=== PATIENT | female | born 1970 | race Caucasian/White ===

== ENCOUNTER 2016-12-23 06:20 | Emergency (ER) | payer BC, OTHER ==
[~2016-12-23] VITALS: Ht 162.6 cm; Wt 92.2 kg
[~2016-12-23 06:20] MED LIST: DOXY100T PO
[2016-12-23 06:26] VITALS: BP 115/73; PULSE 74; RESP 12; TEMP 98.3; O2SAT 98
[2016-12-23 06:40] VITALS: BP 115/73; PULSE 74; RESP 18; TEMP 98.2; O2SAT 98
[2016-12-23] MEDS ORDERED: ESCI5TAB PO (06:46)
[2016-12-23] MEDS ORDERED: ALPR.25 PO (06:46)
--- NOTE | 2016-12-23 06:49 | PD ---
HPI Chief Complaint: Musculoskeletal Complaint Time Seen by Provider: 06:42 Travel History International Travel<30 days: No Contact w/Intl Traveler<30days: No Traveled to known affect area: No History of Present Illness HPI 46-year-old female presents to the emergency department for days after a non- syncopal slip and fall on a wet tile floor at home. Patient states she was not able to catch herself before she had her slip and fall on the wet tile floor 4 days ago. Patient states she did not hit her head and did not have loss of consciousness. Patient states she did not injure her neck or upper back. Patient denies any rib pain or chest pain or shortness of breath. No report of abdominal pain or nausea or vomiting. Patient does complain of left shoulder pain and left hip pain and low back pain. No lower extremity numbness tingling or weakness. No saddle anesthesia. No bladder or bowel dysfunction. Patient initially had some numbness in her left hip with referred pain to her left lower extremity but that has resolved. Patient is here because of persistent hip pain and left shoulder pain. Patient is right-handed. Patient has taken a dose of ibuprofen. Due to persistent symptoms presents now for further evaluation. The patient rates her pain 8/10 intensity. PFSH Past Medical History Narrative Medical 2, reconstructive fistula surgery to the face; no tobacco use; nursing notes reviewed Diminished Hearing: No PNEUMOCCOCAL Vaccine (Year): 0 ?: Unknown Past Surgical History Section: Yes Gynecologic Surgery: Yes (CSECTION X2 ) Oral Surgery: Yes (RECONSTRUCTIVE ORAL/facial) Social History Alcohol Use: No Tobacco Use: No Substance Use: No Allergies-Medications (Allergen,Severity, Reaction): Coded Allergies: Ampicillin (Verified Allergy, Severe, Hives, 12/23/16) Penicillin (Verified Allergy, Severe, Hives, 12/23/16) Zithromax (Verified Allergy, Severe, Anaphylaxis, 12/23/16) Reported Meds & Prescriptions Reported Meds & Active Scripts Active Robaxin (Methocarbamol) 750 Mg Tab 750 Mg PO Q6HR Reported Escitalopram (Escitalopram Oxalate) 5 Mg Tab 5 Mg PO DAILY Xanax (Alprazolam) 0.25 Mg Tab 0.25 Mg PO Q6H PRN Review of Systems Except as stated in HPI: all other systems reviewed are Neg General / Constitutional: No: Fever, Chills Eyes: No: Visual changes HENT: No: Headaches, Neck Pain Cardiovascular: No: Chest Pain or Discomfort Respiratory: No: Shortness of Breath Gastrointestinal: No: Abdominal Pain Genitourinary: Positive: Flank Pain Musculoskeletal: Positive: Myalgias, Arthralgias, Pain (left shoulder left lower back left hip) Skin: No Rash Neurologic: Positive: Weakness (generalized), No: Dizziness, Syncope, Focal Abnormalities, Coordination Problem Psychiatric: Positive: Anxiety Hematologic/Lymphatic: No: Easy Bruising Physical Exam Narrative GENERAL: Well-developed well-nourished female in no acute distress no respiratory distress; antalgic movement from standing at bedside to exam on ED stretcher; GCS 15 SKIN: Warm and dry. HEAD: Atraumatic. Normocephalic. EYES: Pupils equal and round. No scleral icterus. No injection or drainage. ENT: No nasal bleeding or discharge. Mucous membranes pink and moist. NECK: Trachea midline. No JVD. CARDIOVASCULAR: Regular rate and rhythm. RESPIRATORY: No accessory muscle use. Clear to auscultation. Breath sounds equal bilaterally. GASTROINTESTINAL: Abdomen soft, non-tender, nondistended. Hepatic and splenic margins not palpable. MUSCULOSKELETAL: Extremities without clubbing, cyanosis, or edema. No obvious deformities. Decreased range of motion of left shoulder and left hip without ecchymosis abrasion or edema noted distally extremities are neurovascular tendon intact brisk capillary refill less than 2 seconds and radial and dorsalis pedis pulses +2+ bilaterally. NEUROLOGICAL: Awake and alert. No obvious cranial nerve deficits. Motor grossly within normal limits. Five out of 5 muscle strength in the arms and legs. Normal speech. PSYCHIATRIC: Appropriate mood and affect; insight and judgment normal. Data Data Last Documented VS Vital Signs Date Time Temp Pulse Resp B/P Pulse Ox O2 Delivery O2 Flow Rate FiO2 12/23/16 06:40 98.2 74 18 115/73 98 Orders Urinalysis - C+S If Indicated (12/23/16 06:42) Ed Urine Pregnancytest Poc (12/23/16 06:42) Hip, Uni(Ap&Lat) W Ap Pelvis (12/23/16 ) Spine, Lumbar - Ltd (Ap & Lat) (12/23/16 ) Shoulder, Complete (>2vws) (12/23/16 ) MDM Medical Decision Making Medical Screen Exam Complete: Yes Emergency Medical Condition: Yes Medical Record Reviewed: Yes Differential Diagnosis Mechanical fall, shoulder contusion, fracture, dislocation, hip contusion v fracture, lumbar strain sprain contusion DJD HNP cord compression Narrative Course Patient will be sent for imaging studies urinalysis collected [id number] hCG performed and negative; patient appears stable for outpatient management. At 7 AM care signed over to oncoming physician Dr. Musa Diagnosis Primary Impression: Contusion of left hip, initial encounter Additional Impression: Pelvic contusion Qualified Code: S30.0XXA - Pelvic contusion, initial encounter Referrals: Primary Care Physician call for appointment Patient Instructions: General Instructions Med/Other Pt SpecificInfo: Prescription(s) given Scripts Methocarbamol (Robaxin)750 Mg [id number] Mg PO Q6HR #12 TAB Ref 0 Prov:Rosario Rodrigues MD 12/23/16 Rosario Rodrigues MD Dec 23, 2016 06:49
[2016-12-23] MEDS ORDERED: ROBA750T PO (06:57)
[2016-12-23 06:58] LABS: BLOOD, URINE NEG (NEG); GLUCOSE,URINE NEG (NEG); KETONE, URINE NEG (NEG); NITRITE,URINE NEG (NEG); PH, URINE 5.5 (5.0-8.5)
[2016-12-23 07:11] LABS: METHOD OF COLLECTION CLEAN CATCH; URINE COLOR YELLOW (YELLW/STRAW)
[2016-12-23 07:12] LABS: BACTERIA, URINE MOD /hpf; COMMENT (UR) CULTURE INDICATED; COMMENT2 (UR) MUCOUS PRESENT; CULTURE IF INDICATED CULTURE INDICATED; SQUAMOUS EPITHELIAL CELL URINE > 8 /hpf (0-5); WBC, URINE 0-2 /hpf (0-5)
--- NOTE | 2016-12-23 07:16 | RADHPO ---
EXAM DATE/TIME: 12/23/2016 06:51 [facility] COMPARISON: No previous studies available for comparison. INDICATIONS : Fell, complains of left hip pain. MEDICAL HISTORY : None. SURGICAL HISTORY : None. ENCOUNTER: Initial ACUITY: 4 - 6 days PAIN SCORE: 7/10 LOCATION: Left hip FINDINGS: Examination of the left hip was performed with AP Pelvis. The primary and secondary trabecular patte rn of the femoral neck is intact. The hip joint is of normal width without significant sclerosis or bony hypertrophy. The acetabulum is grossly intact. CONCLUSION: Negative for fracture or dislocation. Follow up in 7-10 days is suggested if symptoms persist. Rey Stover MD FACR on December 23, 2016 at 7:14 Board Certified Radiologist. This report was verified electronically.
--- NOTE | 2016-12-23 07:18 | RADHPO ---
EXAM DATE/TIME: 12/23/2016 06:53 [facility] COMPARISON: No previous studies available for comparison. INDICATIONS : Fall, complains of low back pain. MEDICAL HISTORY : None. SURGICAL HISTORY : None. ENCOUNTER: Initial ACUITY: 4 - 6 days PAIN SCORE: 7/10 LOCATION: Lumbar FINDINGS: Mild degenerative changes in lumbar spine loss of disc space height at L1-2 and L2-3. Minimal anteri or osteophytes are seen at T11-T12 and L1-2. Mild degenerative facet disease is noted.. SI joints a re normal. There is no evidence for an acute compression. CONCLUSION: Mild degenerative changes, negative for an acute process. Rey Stover MD FACR on December 23, 2016 at 7:15 Board Certified Radiologist. This report was verified electronically.
--- NOTE | 2016-12-23 07:19 | RADHPO ---
EXAM DATE/TIME: 12/23/2016 06:55 [facility] COMPARISON: No previous studies available for comparison. INDICATIONS : Fall, complains of left shoulder pain. MEDICAL HISTORY : None. SURGICAL HISTORY : None. ENCOUNTER: Initial ACUITY: 4 - 6 days PAIN SCORE: 7/10 LOCATION: Left shoulder FINDINGS: Multiple view examination of the left shoulder demonstrates no evidence of fracture or dislocation. The glenohumeral and acromioclavicular joints are maintained. There is normal range of motion betwee n internal and external rotation. Bony mineralization is normal. CONCLUSION: Negative for fracture or dislocation. Follow up in 7-10 days is suggested if symptoms persist. Rey Stover MD FACR on December 23, 2016 at 7:17 Board Certified Radiologist. This report was verified electronically.
--- NOTE | 2016-12-23 07:34 | PD ---
Data Data Last Documented VS Vital Signs Date Time Temp Pulse Resp B/P Pulse Ox O2 Delivery O2 Flow Rate FiO2 12/23/16 07:28 72 16 98 12/23/16 06:40 98.2 115/73 Orders Urinalysis - C+S If Indicated (12/23/16 06:42) Ed Urine Pregnancytest Poc (12/23/16 06:42) Hip, Uni(Ap&Lat) W Ap Pelvis (12/23/16 ) Spine, Lumbar - Ltd (Ap & Lat) (12/23/16 ) Shoulder, Complete (>2vws) (12/23/16 ) Urine Culture (12/23/16 06:45) Labs Laboratory Tests Test 12/23/16 06:45 Urine Collection Type CLEAN CATCH Urine Color YELLOW Urine Turbidity SLIGHT Urine pH 5.5 Urine Specific [place] 1.026 Urine Protein NEG mg/dL Urine Glucose (UA) NEG mg/dL Urine Ketones NEG mg/dL Urine Occult Blood NEG Urine Nitrite NEG Urine Bilirubin NEG Urine Leukocyte Esterase NEG Urine WBC 0-2 /hpf Urine Squamous Epithelial > 8 /hpf Cells Urine Amorphous Sediment MOD Urine Bacteria MOD /hpf Microscopic Urinalysis Comment CULTURE INDICATED Urine Collection Time 0645 [facility] Supervised Visit with YEN: No Narrative Course This case is checked out to me by Dr. Rodrigues at 7 AM. She had a fall several days ago and is having hip and shoulder and back pain. She had a lot of imaging and I reviewed all of her x-rays Shoulder x-ray shows no fracture or dislocation Hip x-ray shows no fracture or dislocation Lumbar spine films show some arthritic change without fracture Urine does not look suspicious for infection to me with more epithelial cells and white cells but will be cultured Muscle relaxer is been prescribed Gradual resolution is expected Diagnosis Primary Impression: Contusion of left hip, initial encounter Additional Impression: Pelvic contusion Qualified Code: S30.0XXA - Pelvic contusion, initial encounter Referrals: Primary Care Physician call for appointment Patient Instructions: General Instructions, Contusion in Adults (ED), Hip Contusion (ED) Departure Forms: Tests/Procedures Scripts Methocarbamol (Robaxin)750 Mg [id number] Mg PO Q6HR #12 TAB Ref 0 Prov:Rosario Rodrigues MD 12/23/16 Disposition: 01 DISCHARGE HOME Condition: Stable Ever Musa MD Dec 23, 2016 07:34
== END 2016-12-23 07:39 | disposition home or self-care (01) ==
LOC: PHED 06:20
DX: S70.02XA Contusion of left hip, initial encounter (principal); R82.90 Unspecified abnormal findings in urine; M25.512 Pain in left shoulder; M54.5 Low back pain; W01.0XXA Fall on same level from slipping, tripping and stumbling without subsequent striking against object, initial encounter; Y93.01 Activity, walking, marching and hiking; Y92.9 Unspecified place or not applicable; Y99.8 Other external cause status
CPT/HCPCS: 72100; 73030; 73502; 81001; 84703; 87086; 99284

== ENCOUNTER 2017-02-10 18:42 | Emergency (ER) | payer BC ==
[~2017-02-10] VITALS: Ht 162.6 cm; Wt 97.2 kg
[~2017-02-10 18:42] MED LIST changes: +ALPR.25 PO; -DOXY100T PO; +ESCI5TAB PO; +ROBA750T PO
[2017-02-10 18:51] VITALS: BP 144/78; PULSE 72; RESP 18; TEMP 98.2
[2017-02-10] MEDS ORDERED: SODIUM CHLORIDE 0.9% FLUSH 10 ML FLUSH IV FLUSH PRN (19:00)
[2017-02-10] MEDS ORDERED: KETOROLAC TROMETHAMINE 30 MG/ML (IVP) VIAL IVP ONE (19:00)
[2017-02-10] MEDS ORDERED: MORPHINE SULFATE 4 MG/ML INJ IV PUSH ONE (19:00)
[2017-02-10] MEDS ORDERED: SODIUM CHLOR 0.9% 1000 ML INJ 1,000 ML IV SCH (19:00)
[2017-02-10] MEDS ORDERED: ONDANSETRON HCL 4 MG/2 ML VIAL IVP ONE (19:00)
--- NOTE | 2017-02-10 19:13 | PD ---
HPI Chief Complaint: Abdominal Pain Time Seen by Provider: 18:54 Travel History International Travel<30 days: No Contact w/Intl Traveler<30days: No Traveled to known affect area: No History of Present Illness HPI The patient is a 46-year-old female who presents emergency department for abdominal pain and distention of 1 week's duration. The patient states she' s had some abdominal distention over the last week, now complains of left lower quadrant abdominal pain. The patient states she feels like her abdomen is bloated with mild nausea and dry heaves last night. The patient states she is had a few bowel movements, small at times, denies any associated diarrhea. The patient has a history of previous section and is scheduled to undergo partial hysterectomy in [address] Roa for endometriosis/endometritis The patient does have a history of ovarian cyst. The patient denies any fever, chills, or sweats. Symptoms are moderate, there are no current alleviating or exacerbating factors. She denies any previous history of diverticulitis or nephrolithiasis. She denies any associated dysuria, frequency, urgency, vaginal discharge, or vaginal bleeding. PFSH Past Medical History Narrative Medical Endometriosis, ovarian cyst Diminished Hearing: No PNEUMOCCOCAL Vaccine (Year): 0 ?: Not Past Surgical History Section: Yes Gynecologic Surgery: Yes (CSECTION X2 ) Oral Surgery: Yes (RECONSTRUCTIVE ORAL/facial) Social History Alcohol Use: No Tobacco Use: No Substance Use: No Allergies-Medications (Allergen,Severity, Reaction): Coded Allergies: Ampicillin (Verified Allergy, Severe, Hives, 02/10/17) Penicillin (Verified Allergy, Severe, Hives, 02/10/17) Zithromax (Verified Allergy, Severe, Anaphylaxis, 02/10/17) Reported Meds & Prescriptions Reported Meds & Active Scripts Active Reported Alprazolam 0.5 Mg Tab 0.5 Mg PO Q6H PRN Review of Systems Except as stated in HPI: all other systems reviewed are Neg General / Constitutional: No: Fever Cardiovascular: No: Chest Pain or Discomfort Respiratory: No: Shortness of Breath Gastrointestinal: Positive: Nausea, Vomiting, Abdominal Pain, No: Diarrhea, Loss of Appetite Genitourinary: No: Dysuria, Discharge, Vaginal Bleeding Musculoskeletal: Positive: Edema (intermittent dependent edema), No: Myalgias , Arthralgias Physical Exam Narrative GENERAL: Awake, alert, pleasant 46-year-old female who appears her stated age and is in no acute respiratory distress. SKIN: Focused skin assessment warm/dry. HEAD: Atraumatic. Normocephalic. EYES: Pupils equal and round. No scleral icterus. No injection or drainage. ENT: No nasal bleeding or discharge. Mucous membranes pink and moist. NECK: Trachea midline. No JVD. CARDIOVASCULAR: Regular rate and rhythm. No murmur appreciated. RESPIRATORY: No accessory muscle use. Clear to auscultation. Breath sounds equal bilaterally. GASTROINTESTINAL: Abdomen soft, minimal distention, left lower quadrant pain upon palpation. No rebound tenderness or guarding. Negative McBurney's. Negative Kohler's. Back: No CVA tenderness. MUSCULOSKELETAL: No obvious deformities. No clubbing. No cyanosis. No edema. NEUROLOGICAL: Awake and alert. No obvious cranial nerve deficits. Motor grossly within normal limits. Normal speech. PSYCHIATRIC: Appropriate mood and affect; insight and judgment normal. Data Data Last Documented VS Vital Signs Date Time Temp Pulse Resp B/P Pulse Ox O2 Delivery O2 Flow Rate FiO2 02/10/17 19:25 68 20 133/74 99 02/10/17 18:51 98.2 Orders Complete Blood Count With Diff (02/10/17 19:00) Comprehensive Metabolic Panel (02/10/17:00) Lipase (02/10/17 19:00) Urinalysis - C+S If Indicated (02/10/17 19:00) Ct Abd/Pel W/O Iv Contrast (02/10/17 19:00) Iv Access Insert/Monitor (02/10/17 19:00) Ecg Monitoring (02/10/17 19:00) Oximetry (02/10/17 19:00) Morphine Inj (Morphine Inj) (02/10/17 19:00) Ondansetron Inj (Zofran Inj) (02/10/17 19:00) Sodium Chlor 0.9% 1000 Ml Inj (Ns 1000 M (02/10/17 19:00) Sodium Chloride 0.9% Flush (Ns Flush) (02/10/17 19:00) Ketorolac Inj (Toradol Inj) (02/10/17 19:00) Ed Urine Pregnancytest Poc (02/10/17 19:00) Urine Culture (02/10/17 19:20) Labs Laboratory Tests Test 02/10/17 19:20 White Blood Count 8.5 TH/MM3 Red Blood Count 4.57 MIL/MM3 Hemoglobin 13.0 GM/DL Hematocrit 40.3 % Mean Corpuscular Volume 88.2 FL Mean Corpuscular Hemoglobin 28.5 PG Mean Corpuscular Hemoglobin 32.3 % Concent Red Cell Distribution Width 14.0 % Platelet Count 277 TH/MM3 Mean Platelet Volume 8.1 FL Neutrophils (%) (Auto) 60.6 % Lymphocytes (%) (Auto) 31.6 % Monocytes (%) (Auto) 5.7 % Eosinophils (%) (Auto) 1.3 % Basophils (%) (Auto) 0.8 % Neutrophils # (Auto) 5.1 TH/MM3 Lymphocytes # (Auto) 2.7 TH/MM3 Monocytes # (Auto) 0.5 TH/MM3 Eosinophils # (Auto) 0.1 TH/MM3 Basophils # (Auto) 0.1 TH/MM3 CBC Comment DIFF FINAL Differential Comment Urine Color MAX Urine Turbidity MOD Urine pH 6.0 Urine Specific [place] 1.034 Urine Protein TRACE mg/dL Urine Glucose (UA) NEG mg/dL Urine Ketones TRACE mg/dL Urine Occult Blood MOD Urine Nitrite NEG Urine Bilirubin NEG Urine Leukocyte Esterase NEG Urine RBC 4-9 /hpf Urine WBC 6-8 /hpf Urine Squamous Epithelial > 8 /hpf Cells Urine Amorphous Sediment MOD Urine Bacteria MANY /hpf Urine Mucus MOD /lpf Microscopic Urinalysis Comment CULTURE INDICATED Sodium Level 140 MEQ/L Potassium Level 3.5 MEQ/L Chloride Level 106 MEQ/L Carbon Dioxide Level 27.1 MEQ/L Anion Gap 7 MEQ/L Blood Urea Nitrogen 13 MG/DL Creatinine 0.89 MG/DL Estimat Glomerular Filtration 69 ML/MIN Rate Random Glucose 86 MG/DL Calcium Level 8.8 MG/DL Total Bilirubin 0.3 MG/DL Aspartate Amino Transf 18 U/L (AST/SGOT) Alanine Aminotransferase 25 U/L (ALT/SGPT) Alkaline Phosphatase 71 U/L Total Protein 7.3 GM/DL Albumin 3.3 GM/DL Lipase 120 U/L MDM Medical Decision Making Medical Screen Exam Complete: Yes Emergency Medical Condition: Yes Medical Record Reviewed: Yes Interpretation(s) Laboratory Tests Test 02/10/17 19:20 White Blood Count 8.5 TH/MM3 Red Blood Count 4.57 MIL/MM3 Hemoglobin 13.0 GM/DL Hematocrit 40.3 % Mean Corpuscular Volume 88.2 FL Mean Corpuscular Hemoglobin 28.5 PG Mean Corpuscular Hemoglobin 32.3 % Concent Red Cell Distribution Width 14.0 % Platelet Count 277 TH/MM3 Mean Platelet Volume 8.1 FL Neutrophils (%) (Auto) 60.6 % Lymphocytes (%) (Auto) 31.6 % Monocytes (%) (Auto) 5.7 % Eosinophils (%) (Auto) 1.3 % Basophils (%) (Auto) 0.8 % Neutrophils # (Auto) 5.1 TH/MM3 Lymphocytes # (Auto) 2.7 TH/MM3 Monocytes # (Auto) 0.5 TH/MM3 Eosinophils # (Auto) 0.1 TH/MM3 Basophils # (Auto) 0.1 TH/MM3 CBC Comment DIFF FINAL Differential Comment Urine Color MAX Urine Turbidity MOD Urine pH 6.0 Urine Specific [place] 1.034 Urine Protein TRACE mg/dL Urine Glucose (UA) NEG mg/dL Urine Ketones TRACE mg/dL Urine Occult Blood MOD Urine Nitrite NEG Urine Bilirubin NEG Urine Leukocyte Esterase NEG Urine RBC 4-9 /hpf Urine WBC 6-8 /hpf Urine Squamous Epithelial > 8 /hpf Cells Urine Amorphous Sediment MOD Urine Bacteria MANY /hpf Urine Mucus MOD /lpf Microscopic Urinalysis Comment CULTURE INDICATED Sodium Level 140 MEQ/L Potassium Level 3.5 MEQ/L Chloride Level 106 MEQ/L Carbon Dioxide Level 27.1 MEQ/L Anion Gap 7 MEQ/L Blood Urea Nitrogen 13 MG/DL Creatinine 0.89 MG/DL Estimat Glomerular Filtration 69 ML/MIN Rate Random Glucose 86 MG/DL Calcium Level 8.8 MG/DL Total Bilirubin 0.3 MG/DL Aspartate Amino Transf 18 U/L (AST/SGOT) Alanine Aminotransferase 25 U/L (ALT/SGPT) Alkaline Phosphatase 71 U/L Total Protein 7.3 GM/DL Albumin 3.3 GM/DL Lipase 120 U/L CT of the abdomen and pelvis reveals unusual configuration to the region of the cecum with a 4.8 cm opacity near the ileocecal valve which is different imaging features and stool throughout the remainder of the colon. Cannot exclude a solid lesion. A concentric visualization with colonoscopy is recommended. Normal sized the appendix with possible 4 mm appendicolith. 6 mm pulmonary nodule at the periphery of the lower lateral left lung. In accordance with the flush this aside the guidelines, recommend follow-up CT thorax and 6 months that the colonoscopy is negative for malignancy. Differential Diagnosis Differential diagnosis includes pyelonephritis, nephrolithiasis, diverticulitis , UTI, PID, cervicitis, partial small bowel obstruction, endometritis, pancreatitis. Narrative Course IV was established, labs are drawn and sent, and the patient was placed on cardiac telemetry monitoring and continuous pulse oximetry monitoring. The patient was administer morphine, Toradol, Zofran, and IV fluids. UA was sent to lab. CT of the abdomen and pelvis was ordered to evaluate for diverticulitis. The patient's laboratory evaluation is unremarkable except for UA with WBCs and bacteria. The patient will be treated for UTI. However, CT of the abdomen and pelvis is abnormal with unusual configuration to the region of the cecum with a 4.8 cm opacity near the ileocecal valve which is different imaging features and stool throughout the remainder of the colon, cannot exclude a solid lesion, a concentric visible isolation with colonoscopy is recommended. The patient was provided a copy of her labs and CT of the abdomen and pelvis. She is advised to follow-up with gastroenterology as she will need an outpatient colonoscopy. Diagnosis Primary Impression: Abdominal pain Qualified Code: R10.30 - Lower abdominal pain Additional Impression: UTI (urinary tract infection) Qualified Code: N39.0 - Urinary tract infection without hematuria, site unspecified Patient Instructions: General Instructions Additional Instructions: Please provide the patient a copy of her CT results and lab results at discharge. Follow-up with your primary physician for referral to gastroenterology for outpatient colonoscopy. Medications as directed. Return if symptoms worsen or progress. Med/Other Pt SpecificInfo: Prescription(s) given Scripts Hydrocodone-Acetaminophen ([place])5-325 mg Tab1 Tab PO Q6H PRN (PAIN) #12 TAB Ref 0 Prov:Emanuel Lerma MD 02/10/17 Sulfamethoxazole-Trimethoprim (Bactrim DS)800-160 Mg Tab1 Tab PO BID #6 TAB Ref 0 Prov:Emanuel Lerma MD 02/10/17 Disposition: 01 DISCHARGE HOME Condition: Stable Emanuel Lerma MD Feb 10, 2017 19:13
[2017-02-10 19:25] VITALS: BP 133/74; PULSE 68; RESP 20; O2SAT 99
[2017-02-10 19:30] LABS: AUTOMATED NEUTROPHIL # 5.1 TH/MM3 (1.8-7.7); BASOPHIL # 0.1 TH/MM3 (0-0.2); BASOPHIL % 0.8 % (0.0-2.0); EOSINOPHIL # 0.1 TH/MM3 (0-0.4); EOSINOPHIL % 1.3 % (0.0-4.0); HEMATOCRIT 40.3 % (35.0-46.0); LYMPH % 31.6 % (9.0-44.0); LYMPHOCYTE # 2.7 TH/MM3 (1.0-4.8); MEAN CELL VOLUME 88.2 FL (80.0-100.0); MEAN CORPUSCULAR HEMOGLOBIN 28.5 PG (27.0-34.0); MEAN CORPUSCULAR HGB CONC 32.3 % (32.0-36.0); MONO % 5.7 % (0.0-8.0); NEUT % 60.6 % (16.0-70.0); PLATELET COUNT 277 TH/MM3 (150-450); RED BLOOD COUNT 4.57 MIL/MM3 (4.00-5.30); WHITE BLOOD COUNT 8.5 TH/MM3 (4.0-11.0)
[2017-02-10 19:32] LABS: GLUCOSE,URINE NEG (NEG); KETONE, URINE TRACE mg/dL (NEG); NITRITE,URINE NEG (NEG)
[2017-02-10] MEDS ORDERED: ALPR0.5T3 PO (19:32)
[2017-02-10 19:33] LABS: BLOOD, URINE MOD (NEG); HEMO FLAGS DIFF FINAL
[2017-02-10 19:38] LABS: CHLORIDE 106 MEQ/L (98-107); POTASSIUM 3.5 MEQ/L (3.5-5.1); SODIUM (NA) 140 MEQ/L (136-145)
[2017-02-10 19:42] LABS: ANION GAP 7 MEQ/L (5-15); BICARBONATE 27.1 MEQ/L (21.0-32.0); BLOOD UREA NITROGEN 13 MG/DL (7-18)
[2017-02-10 19:45] LABS: ALT (GPT) 25 U/L (10-53); AST (GOT) 18 U/L (15-37); GLOMERULAR FILTRATION RATE 69 ML/MIN (>89)
[2017-02-10 19:47] LABS: TOTAL BILIRUBIN ADULT 0.3 MG/DL (0.2-1.0); URINE COLOR AMBER (YELLW/STRAW)
[2017-02-10 19:48] LABS: ALKALINE PHOSPHATASE 71 U/L (45-117); BACTERIA, URINE MANY /hpf; MUCUS URINE MOD /lpf (OCC); SQUAMOUS EPITHELIAL CELL URINE > 8 /hpf (0-5)
[2017-02-10 19:49] LABS: COMMENT (UR) CULTURE INDICATED; CULTURE IF INDICATED CULTURE INDICATED
[2017-02-10 20:18] VITALS: BP 114/88; PULSE 50; RESP 20; O2SAT 98
--- NOTE | 2017-02-10 21:01 | RADRPT ---
EXAM DATE/TIME: 02/10/2017 19:57 [facility] COMPARISON: No previous studies available for comparison. INDICATIONS : Left lower quadrant pain and distention for one week. ORAL CONTRAST: No oral contrast ingested. RADIATION DOSE: 18.07 CTDIvol (mGy) MEDICAL HISTORY : None SURGICAL HISTORY : section. ENCOUNTER: Initial ACUITY: 1 week PAIN SCALE: 7/10 LOCATION: Left lower quadrant TECHNIQUE: Volumetric scanning of the abdomen and pelvis was performed. Using automated exposure control and ad justment of the mA and/or kV according to patient size, radiation dose was kept as low as reasonably achievable to obtain optimal diagnostic quality images. DICOM format image data is available electro nically for review and comparison. FINDINGS: LOWER LUNGS: No infiltrates in lower lungs. There is a 6 mm nodule periphery left lower lobe laterally as seen on lung window image #11. LIVER: Homogeneous density without lesion for noncontrast technique. There is no dilation of the biliary tr ee. No calcified gallstones. SPLEEN: Normal size without lesion. PANCREAS: Within normal limits. KIDNEYS: Normal in size and shape. There is no mass, stone, or hydronephrosis. ADRENAL GLANDS: Within normal limits. VASCULAR: There is no aortic aneurysm. BOWEL/MESENTERY: No dilated loops of small or large bowel. There is a lobular density in the region of the cecum whic h measures 4.8 cm and has a different configuration than stool throughout the remainder of the colon. This of uncertain significance. The appendix is identified in the right lower quadrant and has a n ormal diameter. There is a focal calcification measuring 4 mm in the region of the mid appendix whic h may represent an appendicolith. No induration of the fat about the appendix. No diverticula in th e sigmoid colon. ABDOMINAL WALL: Within normal limits. RETROPERITONEUM: There is no lymphadenopathy. BLADDER: No wall thickening or mass. REPRODUCTIVE: Anteverted uterus. No evidence of free fluid. INGUINAL: There is no lymphadenopathy or hernia. MUSCULOSKELETAL: Within normal limits for patient age. CONCLUSION: 1. Unusual configuration to the region of the cecum with a 4.8 cm opacity near the ileocecal valve wh ich is different imaging features than stool throughout the remainder of the colon. Cannot exclude a solid lesion. A concentric visualization with colonoscopy. 2. Normal size to the appendix with possible 4 mm appendicolith. 3. 6 mm pulmonary nodule at the periphery of the lower lateral left lung. In accordance with flush t his aside the guidelines, recommend followup CT thorax in 6 months if the colonoscopy is negative for malignancy. Christian Flores MD on February 10, 2017 at 20:53 Board Certified Radiologist. This report was verified electronically.
[2017-02-10] MEDS ORDERED: NORC5TAB PO (21:10)
[2017-02-10] MEDS ORDERED: BACT800T5 PO (21:10)
[2017-02-10 21:34] VITALS: BP 104/60; PULSE 50; RESP 20; O2SAT 98
[2017-02-10 21:35] VITALS: BP 108/54
== END 2017-02-10 21:38 | disposition home or self-care (01) ==
LOC: PHED 18:42
DX: N39.0 Urinary tract infection, site not specified (principal); B96.89 Other specified bacterial agents as the cause of diseases classified elsewhere
CPT/HCPCS: 74176; 80053; 81001; 83690; 84703; 85025; 87086; 96374; 96375; 99285; J1885; J2270; J2405; J7030

== ENCOUNTER 2017-06-16 15:35 | Emergency (ER) | payer BC ==
[~2017-06-16] VITALS: Ht 162.6 cm; Wt 93.0 kg
[~2017-06-16 15:35] MED LIST changes: -ALPR.25 PO; +ALPR0.5T3 PO; +BACT800T5 PO; -ESCI5TAB PO; +NORC5TAB PO; -ROBA750T PO
[2017-06-16 15:39] VITALS: BP 146/82; PULSE 71; RESP 16; TEMP 98.5; O2SAT 99
[2017-06-16] MEDS ORDERED: OMEP20TA93 PO (15:52)
[2017-06-16] MEDS ORDERED: LEXA20TA PO (15:52)
--- NOTE | 2017-06-16 16:09 | PD ---
HPI Chief Complaint: Headache Time Seen by Provider: 16:09 Travel History International Travel<30 days: No Contact w/Intl Traveler<30days: No Traveled to known affect area: No History of Present Illness HPI 46-year-old female came to the emergency room with history of left temporal headache radiating down to the left side of the neck and into her anterior chest. Patient says this is been going on for past 3-4 days. She works nights and when she came back home at 5:30 this morning she had severe headache and just took some medication and went to sleep. She basically took 2 Motrin. Patient says it took the edge off but when she woke up with the headache she decided to come to the emergency room. She normally does not get headaches. She has history of gallbladder stones and has a surgery scheduled in next 3 days to have a cholecystectomy. Vital signs are stable. Light seems to make the headache worse. No history of fever or chills. No history of trauma or syncopal episode. [facility] Past Medical History Narrative Medical List of her past medical, surgical, social and family history is reviewed from the nursing note. Anxiety: Yes Diminished Hearing: No GERD: Yes Influenza Vaccination: No PNEUMOCCOCAL Vaccine (Year): 0 ?: Not : 2 Para: 2 Tubal Ligation: Yes Past Surgical History Section: Yes Gynecologic Surgery: Yes (CSECTION X2 ) Hysterectomy: Yes Oral Surgery: Yes (RECONSTRUCTIVE ORAL/FISTULA) Social History Alcohol Use: Yes Tobacco Use: No Substance Use: No Allergies-Medications (Allergen,Severity, Reaction): Coded Allergies: ampicillin (Unverified Allergy, Severe, Hives, 06/16/17) azithromycin (Unverified Allergy, Severe, Anaphylaxis, 06/16/17) penicillin G (Unverified Allergy, Severe, Hives, 06/16/17) Comments List of her allergies reviewed from the nursing note. Reported Meds & Prescriptions Reported Meds & Active Scripts Active Reported Lexapro (Escitalopram Oxalate) 20 Mg Tab 20 Mg PO DAILY Omeprazole 20 Mg Tab 20 Mg PO DAILY Alprazolam 0.5 Mg Tab 0.5 Mg PO Q6H PRN Narrative Medication List of her home medications reviewed from the nursing note. Review of Systems Except as stated in HPI: all other systems reviewed are Neg Cardiovascular: Positive: Chest Pain or Discomfort Neurologic: Positive: Headache Physical Exam Narrative GENERAL: Awake, alert, moderate distress SKIN: Focused skin assessment warm/dry. HEAD: Atraumatic. Normocephalic. EYES: Pupils equal and round. No scleral icterus. No injection or drainage. ENT: No nasal bleeding or discharge. Mucous membranes pink and moist. NECK: Trachea midline. No JVD. Neck is supple CARDIOVASCULAR: Regular rate and rhythm. No murmur appreciated. RESPIRATORY: No accessory muscle use. Clear to auscultation. Breath sounds equal bilaterally. GASTROINTESTINAL: Abdomen soft, non-tender, nondistended. Hepatic and splenic margins not palpable. MUSCULOSKELETAL: No obvious deformities. No clubbing. No cyanosis. No edema. NEUROLOGICAL: Awake and alert. No obvious cranial nerve deficits. Motor grossly within normal limits. Normal speech. PSYCHIATRIC: Appropriate mood and affect; insight and judgment normal. Data Data Last Documented VS Orders Orders Electrocardiogram (06/16/17 16:38) Complete Blood Count With Diff (06/16/17 16:38) Basic Metabolic Panel (Bmp) (06/16/17 16:38) Troponin I (06/16/17 16:38) Ct Brain W/O Iv Contrast(Rout) (06/16/17 16:38) Ecg Monitoring (06/16/17 16:38) Iv Access Insert/Monitor (06/16/17 16:38) Oximetry (06/16/17 16:38) Sodium Chloride 0.9% Flush (Ns Flush) (06/16/17 16:45) Prochlorperazine Inj (Compazine Inj) (06/16/17 16:45) Sodium Chlor 0.9% 1000 Ml Inj (Ns 1000 M (06/16/17 16:45) Pantoprazole Inj (Protonix Inj) (06/16/17 16:45) Ed Discharge Order (06/16/17 17:35) Labs Laboratory Tests Test 06/16/17 16:45 White Blood Count 6.9 TH/MM3 Red Blood Count 4.34 MIL/MM3 Hemoglobin 12.5 GM/DL Hematocrit 37.3 % Mean Corpuscular Volume 86.0 FL Mean Corpuscular Hemoglobin 28.8 PG Mean Corpuscular Hemoglobin Concent 33.4 % Red Cell Distribution Width 13.2 % Platelet Count 230 TH/MM3 Mean Platelet Volume 7.9 FL Neutrophils (%) (Auto) 60.3 % Lymphocytes (%) (Auto) 30.8 % Monocytes (%) (Auto) 6.7 % Eosinophils (%) (Auto) 1.6 % Basophils (%) (Auto) 0.6 % Neutrophils # (Auto) 4.2 TH/MM3 Lymphocytes # (Auto) 2.1 TH/MM3 Monocytes # (Auto) 0.5 TH/MM3 Eosinophils # (Auto) 0.1 TH/MM3 Basophils # (Auto) 0.0 TH/MM3 CBC Comment DIFF FINAL Differential Comment Blood Urea Nitrogen 10 MG/DL Creatinine 0.70 MG/DL Random Glucose 86 MG/DL Calcium Level 8.5 MG/DL Sodium Level 138 MEQ/L Potassium Level 3.9 MEQ/L Chloride Level 106 MEQ/L Carbon Dioxide Level 25.5 MEQ/L Anion Gap 7 MEQ/L Estimat Glomerular Filtration Rate 91 ML/MIN Troponin I LESS THAN 0.02 NG/ML MDM Medical Decision Making Medical Screen Exam Complete: Yes Emergency Medical Condition: Yes Medical Record Reviewed: Yes Interpretation(s) Twelve-lead EKG was reviewed by me. Normal sinus rhythm, normal axis, bradycardia, nonspecific ST-T wave changes. Heart rate of 50 bpm. Differential Diagnosis Intracranial bleed, status migrainous., Intracranial tumor, ACS Narrative Course 5:31 PM blood test results of back including troponin which is within normal limit. Head CT is negative. Patient was given IV Compazine and IV fluid bolus. I just reassessed her and she said she was feeling better. I've given her instructions and eventually wouldn't discharge her home once the IV fluid is done. Procedures EKG Prior to Arrival: No Diagnosis Primary Impression: Status migrainosus Referrals: Primary Care Physician Departure Forms: Tests/Procedures, Work Release Enter return to work date: Jun 18, 2017 Additional Instructions: Return to the ER if the condition worsens or any other new concerns. Otherwise try to stay hydrated, do not drink alcohol, cheese, wine since they will worsening headache. Coffee will make the headache better. Stay away from television, computer screen or Smart phone screen. Follow-up with your primary care. Disposition: 01 DISCHARGE HOME Condition: Stable Abraham Vargas MD Jun 16, 2017 16:09
[2017-06-16] MEDS ORDERED: SODIUM CHLOR 0.9% 1000 ML INJ 1,000 ML IV ONE (16:45)
[2017-06-16] MEDS ORDERED: PANTOPRAZOLE SODIUM 40 MG VIAL IV PUSH ONE (16:45)
[2017-06-16] MEDS ORDERED: SODIUM CHLORIDE 0.9% FLUSH 10 ML FLUSH IVF PRN (16:45)
[2017-06-16] MEDS ORDERED: PROCHLORPERAZINE INJ 10 MG/2 ML VIAL IV PUSH ONE (16:45)
[2017-06-16 16:55] VITALS: BP 130/68; PULSE 53; RESP 18; O2SAT 100
[2017-06-16 16:56] LABS: AUTOMATED NEUTROPHIL # 4.2 TH/MM3 (1.8-7.7); BASOPHIL % 0.6 % (0.0-2.0); EOSINOPHIL # 0.1 TH/MM3 (0-0.4); EOSINOPHIL % 1.6 % (0.0-4.0); HEMATOCRIT 37.3 % (35.0-46.0); HEMO FLAGS DIFF FINAL; LYMPH % 30.8 % (9.0-44.0); LYMPHOCYTE # 2.1 TH/MM3 (1.0-4.8); MEAN CORPUSCULAR HEMOGLOBIN 28.8 PG (27.0-34.0); MEAN CORPUSCULAR HGB CONC 33.4 % (32.0-36.0); MONO % 6.7 % (0.0-8.0); NEUT % 60.3 % (16.0-70.0); PLATELET COUNT 230 TH/MM3 (150-450); RED BLOOD COUNT 4.34 MIL/MM3 (4.00-5.30); RED CELL DISTRIBUTION WIDTH 13.2 % (11.6-17.2); WHITE BLOOD COUNT 6.9 TH/MM3 (4.0-11.0)
[2017-06-16 17:11] LABS: CHLORIDE 106 MEQ/L (98-107); POTASSIUM 3.9 MEQ/L (3.5-5.1); SODIUM (NA) 138 MEQ/L (136-145)
--- NOTE | 2017-06-16 17:13 | RADRPT ---
EXAM DATE/TIME: 06/16/2017 16:58 [facility] COMPARISON: No previous studies available for comparison. INDICATIONS : Headache and nausea. RADIATION DOSE: 63.75 CTDIvol (mGy) MEDICAL HISTORY : Gastroesophageal reflux disease. SURGICAL HISTORY : Hysterectomy. Reconstructive oral fistula. ENCOUNTER: Initial ACUITY: 3 days PAIN SCALE: 5/10 LOCATION: Left cranial TECHNIQUE: Multiple contiguous axial images were obtained of the head. Using automated exposure control and adj ustment of the mA and/or kV according to patient size, radiation dose was kept as low as reasonably a chievable to obtain optimal diagnostic quality images. DICOM format image data is available electro nically for review and comparison. FINDINGS: CEREBRUM: The ventricles are normal for age. No evidence of midline shift, mass lesion, hemorrhage or acute in farction. No extra-axial fluid collections are seen. POSTERIOR FOSSA: The cerebellum and brainstem are intact. The 4th ventricle is midline. The cerebellopontine angle i s unremarkable. EXTRACRANIAL: The visualized portion of the orbits is intact. SKULL: The calvaria is intact. No evidence of skull fracture. CONCLUSION: Negative noncontrast head CT. Miguel Yan MD on June 16, 2017 at 17:10 Board Certified Radiologist. This report was verified electronically.
[2017-06-16 17:14] LABS: ANION GAP 7 MEQ/L (5-15); BICARBONATE 25.5 MEQ/L (21.0-32.0); BLOOD UREA NITROGEN 10 MG/DL (7-18)
[2017-06-16 17:17] LABS: GLOMERULAR FILTRATION RATE 91 ML/MIN (>89)
--- NOTE | 2017-06-17 19:16 | EKG ---
Date Performed: 06/16/2017 Time Performed: 16:49:09 PTAGE: 46 years EKG: SINUS BRADYCARDIA Since previous tracing, no significant change noted BORDERLINE ECG PREVIOUS TRACING : 09/05/1993 23.41.36 DOCTOR: Ni Beck Interpretating Date/Time 06/17/2017 19:15:03
== END 2017-06-16 18:02 | disposition home or self-care (01) ==
LOC: PHED 15:35
DX: G43.901 Migraine, unspecified, not intractable, with status migrainosus (principal); F41.9 Anxiety disorder, unspecified; K21.9 Gastro-esophageal reflux disease without esophagitis; R94.31 Abnormal electrocardiogram [ECG] [EKG]; Z88.0 Allergy status to penicillin; Z79.899 Other long term (current) drug therapy
CPT/HCPCS: 70450; 80048; 84484; 85025; 93005; 96361; 96374; 96375; 99285; C9113; J0780; J7030

== ENCOUNTER 2017-07-23 14:01 | Emergency (ER) | payer BC ==
[~2017-07-23] VITALS: Ht 162.6 cm; Wt 94.8 kg
[~2017-07-23 14:01] MED LIST changes: -BACT800T5 PO; +LEXA20TA PO; -NORC5TAB PO; +OMEP20TA93 PO
[2017-07-23 14:08] VITALS: BP 126/64; PULSE 65; RESP 16; TEMP 98; O2SAT 99
[2017-07-23] MEDS ORDERED: KETOROLAC TROMETHAMINE 60 MG/2 ML (IM) VIAL IM ONE (14:45)
--- NOTE | 2017-07-23 14:46 | PD ---
HPI Chief Complaint: Musculoskeletal Complaint Time Seen by Provider: 14:31 Travel History International Travel<30 days: No Contact w/Intl Traveler<30days: No Traveled to known affect area: No History of Present Illness HPI Patient comes emergency Department complaining of right shoulder pain after a mechanical fall 2 weeks ago. Patient describes pain as a sharp stabbing pain occasionally radiates into her neck. Pain is worse with certain movement of her shoulder. Denies anything making the pain better. Denies hitting her head or loss of consciousness. Denies any numbness or tingling, , chest pain, shortness of breath, fevers, or any drug use. PFSH Past Medical History Anxiety: Yes Diminished Hearing: No GERD: Yes Influenza Vaccination: Yes PNEUMOCCOCAL Vaccine (Year): 0 ?: Not : 2 Para: 2 Tubal Ligation: Yes Past Surgical History Section: Yes Gynecologic Surgery: Yes (CSECTION X2 ) Hysterectomy: Yes Oral Surgery: Yes (RECONSTRUCTIVE ORAL/FISTULA) Social History Alcohol Use: Yes Tobacco Use: No Substance Use: No Allergies-Medications (Allergen,Severity, Reaction): Coded Allergies: ampicillin (Unverified Allergy, Severe, Hives, 07/23/17) azithromycin (Unverified Allergy, Severe, Anaphylaxis, 07/23/17) penicillin G (Unverified Allergy, Severe, Hives, 07/23/17) Reported Meds & Prescriptions Reported Meds & Active Scripts Active Flexeril (Cyclobenzaprine HCl) 10 Mg Tab 10 Mg PO Q8HR PRN Naprosyn (Naproxen) 500 Mg Tab 500 Mg PO Q12HR PRN Reported Lexapro (Escitalopram Oxalate) 20 Mg Tab 20 Mg PO DAILY Omeprazole 20 Mg Tab 20 Mg PO DAILY Alprazolam 0.5 Mg Tab 0.5 Mg PO Q6H PRN Review of Systems Except as stated in HPI: all other systems reviewed are Neg Physical Exam Narrative GENERAL: Well-developed, overly nourished, in no acute distress, and non-ill appearing. SKIN: Focused skin assessment warm and dry. HEAD: Atraumatic. Normocephalic. EYES: Pupils equal and round. EOMI. No scleral icterus. No injection or drainage. ENT: No nasal bleeding or discharge. Mucous membranes pink and moist. NECK: Trachea midline. Supple. No nuclear rigidity. CARDIOVASCULAR: Radial pulses 2+, intact, equal bilaterally. Capillary refill less than 2 seconds. RESPIRATORY: No accessory muscle use. No respiratory distress. MUSCULOSKELETAL: No obvious deformities. No clubbing. No cyanosis. No edema. Full range of motion. Shoulder:FROM equal BL with passive flexion, extension, Abduction, Adduction, internal/external rotation, and pronation/supination. Sensation equal BL deltoid muscles. Pulses equal BL distal to injury. Capillary refill less than 2 seconds distal to injury and equal BL. FROM distal to injury and equal BL. Strength distal to injury equal BL. NV intact distal to injury equal BL. Flexion and extension of thumb equal BL. Equal strength and movement with abduction/adductions of BL fingers. Assistant Vice President strength equal BL. Patient reports his palpation anterior aspect of right shoulder. No crepitus. NEUROLOGICAL: Awake and alert. No obvious cranial nerve deficits. Motor grossly within normal limits. Normal speech. PSYCHIATRIC: Appropriate mood and affect; insight and judgment normal. Data Data Last Documented VS Vital Signs Date Time Temp Pulse Resp B/P (MAP) Pulse Ox O2 Delivery O2 Flow Rate FiO2 07/23/17 14:08 98.0 65 16 126/64 (84) 99 Orders Orders Ketorolac Inj (Toradol Inj) (07/23/17 14:45) Shoulder, Complete (>2vws) (07/23/17 ) Ice/Cold Pack (07/23/17 14:44) MDM Medical Decision Making Medical Screen Exam Complete: Yes Emergency Medical Condition: Yes Interpretation(s) Right shoulder x-ray read by the radiologist shows: Unremarkable examination of the right shoulder. Differential Diagnosis Fracture, strain, contusion, dislocation Narrative Course The patient appears to have suffered a contusion of the extremity. There is no clinical evidence to suspect bony injury by exam. Radiographic examination revealed no fracture seen at this time. The patient has full range of motion on active and passive motions. There is no significant edema. There is no proximal or distal joint effusion. The distal extremity appears neurovascularly intact, without evidence of neurovascular injury nor compartment syndrome. Tendon exam also was intact. The patient was discharged on pain medication instructions and given warnings for vascular compromise. The patient is to follow up with their regular physician or Orthopedics. The patient agrees with plan. Patient in no obvious distress upon re-evaluation. All pertinent Radiology result(s) discussed with patient. Patient was asked if they wanted to speak to my attending, which the patient did not wish to do at this time. Any questions/ concerns in reference to patient diagnosis/condition discussed and clarified prior to patient's discharge. Reinforced sheer importance of close follow up with patient's primary physician or primary care clinic. Instructed patient to return to ED immediately, if symptoms return/worsen. Patient showed understanding of above instructions. Further instructions and recommendations were detailed in discharge paperwork. Patient ambulated without difficulty out of ED at discharge. Diagnosis Primary Impression: Contusion of right shoulder, initial encounter Referrals: Jerel Singh MD [facility] Patient Instructions: Contusion in Adults (ED), General Instructions, Shoulder Pain (GEN) Additional Instructions: Follow-up with your primary care physician and/or orthopedics in 3-5 days for reevaluation. Take all medication as prescribed. Apply ice to affected area 20 minutes per hour as needed for pain. Return to the emergency department if symptoms get worse. Med/Other Pt SpecificInfo: Prescription(s) given Scripts Cyclobenzaprine (Flexeril) 10 Mg Tab 10 MG PO Q8HR Y for MUSCLE PAIN, #15 TAB 0 Refills Prov: Kera Perez MD 07/23/17 Naproxen (Naprosyn) 500 Mg Tab 500 MG PO Q12HR Y for PAIN SCALE 1 TO 10, #14 TAB 0 Refills Prov: Kera Perez MD 07/23/17 Disposition: 01 DISCHARGE HOME Condition: Stable Nacho Kennedy Jul 23, 2017 14:46
--- NOTE | 2017-07-23 15:46 | RADRPT ---
EXAM DATE/TIME: 07/23/2017 15:29 [facility] COMPARISON: No previous studies available for comparison. INDICATIONS : Right shoulder pain since falling 2 weeks ago. MEDICAL HISTORY : None. SURGICAL HISTORY : None. ENCOUNTER: Initial ACUITY: 2 weeks PAIN SCORE: 8/10 LOCATION: Right shoulder. FINDINGS: Multiple view examination of the right shoulder demonstrates no evidence of fracture or dislocation. The glenohumeral and acromioclavicular joints are maintained. There is normal range of motion betwe en internal and external rotation. Bony mineralization is normal. CONCLUSION: Unremarkable examination of the right shoulder. Miguel Russo MD on July 23, 2017 at 15:44 Board Certified Radiologist. This report was verified electronically.
[2017-07-23] MEDS ORDERED: NAPR500 PO (16:07)
[2017-07-23] MEDS ORDERED: CYCL10TA PO (16:07)
== END 2017-07-23 16:18 | disposition home or self-care (01) ==
LOC: PHEFT 14:01
DX: S40.011A Contusion of right shoulder, initial encounter (principal); M54.2 Cervicalgia; K21.9 Gastro-esophageal reflux disease without esophagitis; F41.9 Anxiety disorder, unspecified; W19.XXXA Unspecified fall, initial encounter
CPT/HCPCS: 73030; 96372; 99284; J1885